=== PATIENT | female | born 1965 | race Caucasian/White ===

== ENCOUNTER 2019-03-05 12:54 | Emergency (ER) | payer BC ==
[2019-03-05] MEDS ORDERED: Ondansetron 4 MG Tab.DIS PO ONE (14:27)
--- NOTE | 2019-03-05 14:29 | EDM.PDOC ---
ED HPI GENERAL MEDICAL PROBLEM - General Chief Complaint: Flank Pain Stated Complaint: FLANK PAIN Time Seen by Provider: 03/05/19 14:23 Source of Information: Reports: Patient, RN Notes Reviewed - History of Present Illness INITIAL COMMENTS - FREE TEXT/NARRATIVE: 53-year-old lady comes in with left back and flank discomfort. She has had some discomfort off-and-on for several weeks but this became much more severe last evening and during the night. No recent fever or chills. She denies abdominal pain or voiding symptoms. She does have history of prior kidney stones. she has not been vomiting. She was just seen at the clinic, given torodol IM so doing OK for pain at this time. - Related Data Allergies Allergy/AdvReac Type Severity Reaction Status Date / Time erythromycin base Allergy Diarrhea Verified 03/05/19 14:32 iodine Allergy Airway Verified 03/05/19 14:32 Tightness Home Meds: Home Meds Nitrofurantoin Monohyd/M-Cryst [Macrobid 100 mg Capsule] 100 mg PO BID #14 capsule 03/05/19 [Rx] Past Medical History Genitourinary History: Reports: Renal Calculus ED ROS GENERAL - Review of Systems Review Of Systems: See Below Constitutional: Denies: Fever, Chills, Diaphoresis HEENT: Reports: No Symptoms Respiratory: Denies: Shortness of Breath Cardiovascular: Denies: Chest Pain GI/Abdominal: Reports: Nausea (mild, gone). Denies: Abdominal Pain, Vomiting : Denies: Dysuria, Frequency, Hematuria, Urgency Musculoskeletal: Reports: Back Pain (and L flank pain) Skin: Reports: No Symptoms ED EXAM, RENAL/ - Physical Exam Exam: See Below General Appearance: Alert, No Apparent Distress Throat/Mouth: Normal Inspection Head: Atraumatic. No: Facial Swelling Neck: Supple Respiratory/Chest: No Respiratory Distress, Lungs Clear, Normal Breath Sounds Cardiovascular: Regular Rate, Rhythm GI/Abdominal: Soft, Non-Tender Back Exam: CVA Tenderness (L) (mild). No: CVA Tenderness (R) Extremities: Normal Inspection, Normal Range of Motion. No: Pedal Edema Neurological: Alert, No Motor/Sensory Deficits Skin Exam: Warm, Dry, Normal Color, No Rash Course - Vital Signs Last Recorded V/S: Last Vital Signs Temp 96.8 F 03/05/19 14:01 Pulse 73 03/05/19 14:01 Resp 19 03/05/19 14:01 BP 179/109 H 03/05/19 14:01 Pulse Ox 96 03/05/19 14:01 - Orders/Labs/Meds Labs: Laboratory Tests 03/05/19 Range/Units 14:15 Urine Color Yellow (Yellow) Urine Appearance Slt cloudy H (Clear) Urine pH 5.5 (5.0-8.0) Ur Specific [place] 1.020 (1.005-1.030) Urine Protein Negative (Negative) Urine Glucose (UA) Negative (Negative) Urine Ketones Negative (Negative) Urine Occult Blood Negative (Negative) Urine Nitrite Negative (Negative) Urine Bilirubin Negative (Negative) Urine Urobilinogen 0.2 (0.2-1.0) Ur Leukocyte Esterase 1+ H (Negative) Urine RBC 0-5 (0-5) /hpf Urine WBC 0-5 (0-5) /hpf Ur Squamous Epith Cells 10-20 H (0-5) /hpf Urine Bacteria Moderate H (FEW) /hpf Urine Mucus Few (FEW) /hpf Meds: Medications Discontinued Medications Generic Name Dose Route Start Last Admin Trade Name Freq PRN Reason Stop Dose Admin Nitrofurantoin Macrocrystals 100 mg 03/05/19 16:23 03/05/19 16:40 Macrobid PO 03/05/19 16:24 100 mg ONETIME ONE Administration Ondansetron HCl 4 mg 03/05/19 14:27 03/05/19 14:31 Zofran Odt PO 03/05/19 14:28 4 mg ONETIME ONE Administration - Re-Assessments/Exams Free Text/Narrative Re-Assessment/Exam: 03/05/19 16:[address] is come back negative, however she does have a UTI. Discharge instructions as documented. Departure - Departure Time of Disposition: 16:25 Disposition: Home, Self-Care 01 Condition: Fair Clinical Impression: UTI, Urinary tract infectious disease - Discharge Information Prescriptions: Nitrofurantoin Monohyd/M-Cryst [Macrobid 100 mg Capsule] 100 mg PO BID #14 capsule Instructions: Urinary Tract Infection, Adult, [id number] Referrals: Aby Nixon PA-C [Primary Care Provider] - Forms: ED Department Discharge Additional Instructions: Macrobid antibiotic 100 mg twice daily for the next 5 days, you've been given your first dose here in the ED. Taken next dose this evening at bedtime and then continue that twice daily until gone. Water to maintain hydration, follow- up clinic if not much better within 2-3 days as expected, return to ED as needed if symptoms worsening in any way.
--- NOTE | 2019-03-05 15:33 | CT ---
CT abdomen and pelvis Technique: Multiple axial sections were obtained from above the dome of the diaphragm inferiorly through the pubic symphysis. Intravenous and oral contrast was not utilized. Study has been performed as a ureteral stone protocol. Comparison: No prior abdominal imaging. Findings: Small nonobstructing calculus is seen within both kidneys within the lower pole. No ureteral dilatation is seen. No ureteral calcifications are seen. Visualized noncontrast appearance of the liver and spleen appear within normal limits. Adrenal glands show no nodule. Pancreas is within normal limits. Several soft tissue nodules are seen medial to the spleen compatible with accessory splenic tissue. Gallbladder contains no calcified gallstones. Aorta shows no aneurysm. No retroperitoneal adenopathy or mesenteric abnormalities are seen. No pelvic mass or adenopathy is seen. Lower pelvis not well seen due to artifact from bilateral hip prosthesis. No free fluid or inflammatory change is seen. Appendix is seen and is normal in size. Bone window settings were reviewed which show mild scattered degenerative change within the spine. No acute osseous abnormality is seen. Impression: 1. No ureteral dilatation or ureteral stone is seen. 2. Small nonobstructing calculus within the lower pole of each kidney. 3. Other incidental findings. Nothing acute is appreciated on noncontrast CT study of the abdomen and pelvis. Diagnostic code #2
[2019-03-05] MEDS ORDERED: Nitrofurantoin Monohydrate/Macrocrystalline 100 MG Cap PO ONE (16:23)
== END 2019-03-05 16:45 | disposition home or self-care (01) ==
LOC: JD.ED 12:54
DX: N39.0 Urinary tract infection, site not specified (principal); Z91.048 Other nonmedicinal substance allergy status; Z88.1 Allergy status to other antibiotic agents
CPT/HCPCS: 74176; 81001; 99284; A9270

== ENCOUNTER 2019-04-23 06:57 | Day surgery (SDC) | payer BC ==
[~2019-04-23 06:57] MED LIST: Lactated Ringers 1,000 ML IV SCH; Lidocaine 1%/Sod Bicarbonate in NS 8.4% 1 ML Syringe IDERM PRN; Sodium Chloride 0.9% 10 ML Syringe FLUSH PRN
[2019-04-23] MEDS ORDERED: Albuterol 0.083% 2.5 MG/3 ML Neb Soln NEB SCH (07:00)
--- NOTE | 2019-04-23 07:12 | PCM.PREANE ---
Preanesthetic Assessment - Anesthesia/Transfusion/Family Hx Anesthesia History: Prior Anesthesia Without Reaction Family History of Anesthesia Reaction: No Transfusion History: No Prior Transfusion(s) - Review of Systems General: No Symptoms Pulmonary: No Symptoms Cardiovascular: No Symptoms Gastrointestinal: No Symptoms Neurological: No Symptoms - Physical Assessment NPO Status Date: 04/22/19 NPO Status Time: 22:00 ASA Class: 3 Mental Status: Alert & Oriented x3 Dentition: Reports: Normal Dentition Thyro-Mental Finger Breadths: 3 Mouth Opening Finger Breadths: 4 ROM/Head Extension: Full Lungs: Clear to Auscultation, Normal Respiratory Effort Cardiovascular: Regular Rate, Regular Rhythm - Allergies Allergies/Adverse Reactions: Allergies Allergy/AdvReac Type Severity Reaction Status Date / Time adhesive tape Allergy Nausea and Verified 04/20/19 11:00 Vomiting erythromycin base Allergy Diarrhea Verified 04/20/19 11:00 iodine Allergy Airway Verified 04/20/19 11:00 Tightness shellfish derived Allergy Anaphylactic Verified 04/20/19 11:00 Shock - Blood Blood Available: No - Acknowledgements Anesthesia Type Planned: General Anesthesia, MAC Pt an Appropriate Candidate for the Planned Anesthesia: Yes Alternatives and Risks of Anesthesia Discussed w Pt/Guardian: Yes Pt/Guardian Understands and Agrees with Anesthesia Plan: Yes PreAnesthesia Questionnaire Cardiovascular History: Reports: Hypertension, Other (See Below) Other Cardiovascular History: varicose veins. Recent coronary arteries screening WNL Respiratory History: Reports: Asthma, Sleep Apnea Genitourinary History: Reports: None, Renal Calculus [employer] History: Reports: Endometrial Ablation Musculoskeletal History: Reports: RA, Other (See Below) Other Musculoskeletal History: ankylsing spondylitis Neurological History: Reports: Migraines Psychiatric History: Reports: Other (See Below) Other Psychiatric History: chronic pain Endocrine/Metabolic History: Reports: Obesity/BMI 30+ Hematologic History: Reports: None Immunologic History: Reports: None Oncologic (Cancer) History: Reports: None Dermatologic History: Reports: None - Past Surgical History HEENT Surgical History: Reports: Tonsillectomy Cardiovascular Surgical History: Respiratory Surgical History: Reports: None GI Surgical History: Reports: Colonoscopy, EGD Female Surgical History: Reports: None Male Surgical History: Reports: None Neurological Surgical History: Reports: None Musculoskeletal Surgical History: Reports: Hip Replacement, Other (See Below) Other Musculoskeletal Surgeries/Procedures:: ganglion cyst excision, bilateral total hip replacements Oncologic Surgical History: Reports: None Dermatological Surgical History: Reports: None - SUBSTANCE USE Smoking Status *Q: Never Smoker Recreational Drug Use History: No - HOME MEDS Home Medications: Home Meds Albuterol [Ventolin HFA] 1 - 2 puff INH Q4H 04/20/19 [History] Amitriptyline [Elavil] 50 mg PO BEDTIME 04/20/19 [History] Cetirizine [ZyrTEC] 10 mg PO DAILY PRN 04/20/19 [History] Cholecalciferol (Vitamin D3) [Vitamin D3] 10,000 unit PO DAILY 04/20/19 [History ] Cyclobenzaprine [Flexeril] 10 mg PO TID PRN 04/20/19 [History] Fluticasone/Salmeterol [Advair 250-50] 1 puff INH BID 04/20/19 [History] Folic Acid 3 mg PO DAILY 04/20/19 [History] Hydrocodone/Acetaminophen [[place] 5-325 Tablet] 1 tab PO BID PRN 04/20/19 [ History] Lisinopril [Zestril] 40 mg PO DAILY 04/20/19 [History] Meloxicam [Mobic] 7.5 mg PO DAILY PRN 04/20/19 [History] Penciclovir [Denavir] 1 dose TOP ASDIRECTED PRN 04/20/19 [History] Propranolol [Inderal LA] 60 mg PO BEDTIME 04/20/19 [History] Ranitidine [Zantac] 150 mg PO BID PRN 04/20/19 [History] Red Yeast Rice 1,200 mg PO DAILY 04/20/19 [History] Sennosides [Senokot] 8.6 mg PO DAILY 04/20/19 [History] Spironolactone [Aldactone] 25 mg PO DAILY 04/20/19 [History] sulfaSALAzine 500 mg PO DAILY 04/20/19 [History] - CURRENT (IN HOUSE) MEDS Current Meds: Current Medications Albuterol (Proventil Neb Soln) 2.5 mg NEB ONETIME MIKY Stop: 04/23/19 12:00 Lactated Ringer's (Ringers, Lactated) 1,000 mls @ 125 mls/hr IV ASDIRECTED MIKY Lidocaine/Sodium Bicarbonate (Buffered Lidocaine 1% In Ns 8.4%) 0.25 ml IDERM ONETIME PRN PRN Reason: Prior to IV Start Sodium Chloride (Saline Flush) 10 ml FLUSH ASDIRECTED PRN PRN Reason: Keep Vein Open
[2019-04-23] MEDS ORDERED: Propofol 200 MG/20 ML SDV ONE ×5 (07:16→09:02)
[2019-04-23] MEDS ORDERED: Lidocaine 1% 4 ML ONE ×2 (07:20→08:41)
[2019-04-23] MEDS ORDERED: Midazolam 1 MG/ML 2 ML SDV ONE (07:21)
[2019-04-23] MEDS ORDERED: fentaNYL 100 MCG/2 ML SDV ONE (07:22)
[2019-04-23] MEDS ORDERED: Benzocaine 20% Oral Spray 59.2 ML Canister ONE (08:00)
[2019-04-23] MEDS ORDERED: Lactated Ringers 1,000 ML ONE (08:34)
--- NOTE | 2019-04-23 09:23 | PCM48HPAN ---
Post Anesthesia Note - EVALUATION WITHIN 48HRS OF ANESTHETIC Vital Signs in Normal Range: Yes Patient Participated in Evaluation: Yes Respiratory Function Stable: Yes Airway Patent: Yes Cardiovascular Function Stable: Yes Hydration Status Stable: Yes Pain Control Satisfactory: Yes Nausea and Vomiting Control Satisfactory: Yes Mental Status Recovered: Yes Vital Signs: Last Vital Signs Temp 97.7 F 04/23/19 07:15 Pulse 76 04/23/19 07:15 Resp 18 04/23/19 07:15 BP 144/93 H 04/23/19 07:15 Pulse Ox 94 L 04/23/19 07:15 - COMMENTS/OBSERVATIONS Free Text/Narrative:: VS postop 128/79, HR 77 SpO2 97% RR 16
--- NOTE | 2019-04-23 10:20 | PROC ---
DATE OF OPERATION: 04/23/2019 SURGEON: Marisol Siegel MD PREOPERATIVE DIAGNOSES: 1. Heartburn and gastroesophageal reflux disease. 2. Family history of colon cancer and personal history of polyps. OPERATION PERFORMED: 1. Esophagogastroduodenoscopy with biopsies. 2. Colonoscopy with polypectomy. ESTIMATED BLOOD LOSS: Minimal. FINDINGS: 1. Mild antritis. Biopsied 2. Medium-sized hiatal hernia. 3. Distal esophagitis. Biopsied 4. Proximal transverse colon polyp. Removed 5. Descending colon polyp. Removed 6. Diverticulosis. INDICATIONS AND CONSENT: Ms. Friend is a 53-year-old female, who has family history of colon cancer in her father, who was diagnosed at age 50. The patient has had a prior colonoscopies x2, both of which found adenomas. She follows up with a colonoscopy every 5 years. Her last colonoscopy was in 2013. Therefore, she is here for another surveillance colonoscopy. During evaluation, she also noted to have chronic GERD for which she takes PPIs and is moderately well controlled. Therefore, she requested a followup EGD to re-evaluate her esophagus. The patient was evaluated and found to be a candidate for EGD and colonoscopy. Risks, benefits, and alternatives were discussed and informed consent was obtained. DESCRIPTION OF PROCEDURE: The patient was taken to the procedure room, placed in the left lateral decubitus position. Following induction of monitored anesthesia, Cetacaine was administered due to her sensitive throat. Then, EGD scope was advanced through the mouth into the esophagus. There was significant amount of saliva in the esophagus, which was suctioned out. The esophagus appeared to be normal. The scope was advanced all the way to the second portion of duodenum, which appeared to be normal. On withdrawal, there was mild inflammation in the antrum. Biopsies were taken here with cold forceps. On retroflexion, there was about 3- 4 cm hiatal hernia without any ulcers. The GE junction appeared to be slightly inflamed and irregular. Therefore, 2 biopsies were taken here with cold forceps as well as there was mild inflammation of the distal esophagus. Therefore, another biopsy was taken here with cold forceps. The rest of the exam appeared to be otherwise normal. The scope was withdrawn after desufflating air from the stomach. We turned our attention to the colonoscopy. The colonoscopy was prepared. Perianal and digital rectal exams were performed. There was grade 2 hemorrhoid on digital rectal exam. The scope was advanced and taken all the way to the cecum. The appendiceal orifice as well as the ileocecal valve were photographed. With slowly withdrawing the colonoscope, we examined the colonic mucosa. We found about a 6 mm polyp in the proximal transverse colon and this was completely removed with a snare and taken out for pathology. We also found another small about 3 mm polyp in the descending colon, which was removed with cold forceps. There was some diverticulosis in the sigmoid as well as descending colon, moderate amount and scattered areas of diverticulosis. On retroflexion, the rectum showed grade 2 hemorrhoids. No other abnormalities were found. The colon was suctioned out of air and the colonoscope was withdrawn there. ESTIMATED BLOOD LOSS: Minimal. COMPLICATIONS: There was no other immediate complications. PLAN: For the patient to be discharged home. The patient to follow up in clinic in 2 weeks with Lottie Mcknight to discuss the results of the pathology. ALY /[id number] AMBER
== END 2019-04-23 09:57 | disposition home or self-care (01) ==
LOC: JD.SDS 06:57
PROVIDERS: ATTEND Surgery
DX: Z12.11 Encounter for screening for malignant neoplasm of colon (principal); D12.3 Benign neoplasm of transverse colon; K21.0 Gastro-esophageal reflux disease with esophagitis; K29.60 Other gastritis without bleeding; K44.9 Diaphragmatic hernia without obstruction or gangrene; K57.30 Diverticulosis of large intestine without perforation or abscess without bleeding; K64.1 Second degree hemorrhoids; M06.9 Rheumatoid arthritis, unspecified; G47.33 Obstructive sleep apnea (adult) (pediatric); E66.9 Obesity, unspecified; I10 Essential (primary) hypertension; M45.9 Ankylosing spondylitis of unspecified sites in spine; G43.909 Migraine, unspecified, not intractable, without status migrainosus; Z80.0 Family history of malignant neoplasm of digestive organs; Z86.010 Personal history of colon polyps; Z79.899 Other long term (current) drug therapy; Z91.048 Other nonmedicinal substance allergy status; Z91.013 Allergy to seafood; Z88.1 Allergy status to other antibiotic agents
CPT/HCPCS: 00813; A9270-GY; J2001; J2250; J2704; J3010; J7120